=== PATIENT | male | born 1985 | race Caucasian/White ===

== ENCOUNTER 2018-09-09 07:57 | Emergency (ER) | payer OTHER ==
[2018-09-09 08:03] VITALS: BP 134/62; PULSE 102; TEMP 97.8; BMI 27.8
[2018-09-09] MEDS ORDERED: CYCLOBENZAPRINE HCL 10 MG TABLET (FP) PO ONE (08:33)
[2018-09-09] MEDS ORDERED: KETOROLAC TROMETHAMINE 60 MG/2 ML VIAL IM ONE (08:33)
[2018-09-09] MEDS ORDERED: CYCLOBENZAPRINE HCL 10 MG TABLET (FP) ONE (08:34)
[2018-09-09] MEDS ORDERED: KETOROLAC TROMETHAMINE 60 MG/2 ML VIAL ONE (08:34)
--- NOTE | 2018-09-09 09:04 | PDOC ---
History of Present Illness - General Chief Complaint: Back Pain Stated Complaint: BACK PAIN Time Seen by Provider: 09/09/18 08:26 History Source: Patient - History of Present Illness Occurred: reports: yesterday Past History - Past Medical History Allergies/Adverse Reactions: Allergies Allergy/AdvReac Type Severity Reaction Status Date / Time No Known Allergies Allergy Verified 09/09/18 08:03 Home Medications: Ambulatory Orders Cyclobenzaprine HCl [Flexeril 10 mg] 10 mg PO TID #9 tablet 09/09/18 Ibuprofen [Motrin -] 800 mg PO Q6H #30 tablet 09/09/18 COPD: No - Suicide/Smoking/Psychosocial Hx Smoking History: Current every day smoker Information on smoking cessation initiated: No Review of Systems - Review of Systems ABD/GI: No: Nausea, Vomiting, Abdominal cramping : No: Symptoms Reported, Burning, Dysuria, Discharge, Hematuria, Testicular Mass, Testicular Swelling, Testicular Pain Musculoskeletal: Yes: Back Pain Neurological: No: Numbness, Tingling, Weakness *Physical Exam - Vital Signs Last Vital Signs Temp Pulse Resp BP Pulse Ox 97.8 F 102 H 20 134/62 98 09/09/18 08:00 09/09/18 08:00 09/09/18 08:00 09/09/18 08:00 09/09/18 08:00 - Physical Exam General Appearance: Yes: Appropriately Dressed. No: Apparent Distress HEENT: positive: Normal Voice Respiratory/Chest: negative: Respiratory Distress Gastrointestinal/Abdominal: positive: Soft. negative: Tender Musculoskeletal: positive: Normal Inspection, Vertebral Tenderness (to L lower back, neg SLR, bearing weight). negative: CVA Tenderness Integumentary: positive: Dry, Warm Neurologic: positive: Fully Oriented, Alert, Normal Mood/Affect, Motor Strength 5/5 ED Treatment Course - Medications Given in the ED: ED Medications Discontinued Medications Generic Name Dose Route Start Last Admin Trade Name Freq PRN Reason Stop Dose Admin Cyclobenzaprine HCl 5 mg 09/09/18 08:33 09/09/18 08:38 Flexeril - PO 09/09/18 08:34 5 mg ONCE ONE Administration Ketorolac Tromethamine 60 mg 09/09/18 08:33 09/09/18 08:38 Toradol Injection - IM 09/09/18 08:34 60 mg ONCE ONE Administration Medical Decision Making - Medical Decision Making 09/09/18 09:02 33-year-old male, endorses history of multiple spinal fractures to lower back s/ p injury remotely, but refused surgery at the time per pt, w/ intermittent LBP since, here w/ severe left lower back pain that started while lifting heavy object last night. States pain radiating to posterior aspect of left thigh. Taking aspirin with no relief. No sensory changes lower extremity weakness, anesthesia or bowel or bladder incontinence See exam M/l back strain vs spasm in setting of heavy lifting NO red flags at this time -pain control in ED -dc w/ rx for same -will f/u with ortho spine in [place] where pt resides *DC/Admit/Observation/Transfer Diagnosis at time of Disposition: Back strain Qualifiers: Encounter type: initial encounter Qualified Code(s): S39.012A - Strain of muscle, fascia and tendon of lower back, initial encounter - Discharge Dispostion Disposition: HOME Condition at time of disposition: Improved - Prescriptions Prescriptions: Cyclobenzaprine HCl [Flexeril 10 mg] 10 mg PO TID #9 tablet Ibuprofen [Motrin -] 800 mg PO Q6H #30 tablet - Referrals - Patient Instructions Printed Discharge Instructions: DI for Back Strain or Sprain Additional Instructions: You most likely sustained a muscular injury such as a strain or a spasm. Take medications as prescribed and once you return home to [place] follow- up with an orthopedic spine doctor for further evaluation of your chronic back issues - Post Discharge Activity
== END 2018-09-09 09:03 | disposition home or self-care (01) ==
LOC: JERFT 07:57
PROC: 3E0233Z Introduction of Anti-inflammatory into Muscle, Percutaneous Approach (ICD-10-PCS; principal; 2018-09-09)
DX: S39.012A Strain of muscle, fascia and tendon of lower back, initial encounter (principal); X50.0XXA Overexertion from strenuous movement or load, initial encounter; Y93.89 Activity, other specified; Y92.89 Other specified places as the place of occurrence of the external cause; Y99.8 Other external cause status
CPT/HCPCS: 96372; 99281-25